=== PATIENT | male | born 2000 | race Caucasian/White ===

== ENCOUNTER 2025-01-28 13:04 | Inpatient (IN) | payer OTHER, SELFPAY ==
--- OUTSIDE RECORDS SUMMARY | 2020-10-27 04:32 | XMS_ITS | Continuity of Care Document ---
Author Organization [employer] [facility] Address [address], [place] [address] Phone Care Team Providers Care Manager Strategy & Account Name Role Phone Elia Jones OD Unavailable Unavailable Advance Directives Directive Yes / No Effective Date File Name No Information Encounters Encounter Description Practice Location Reason(s) For Visit Diagnoses Date Provider Jessica Johnson [facility], [address], [place], [id number], [place] tel:[phone] [facility] 350 No Information 2020 Robert Rodrigez. [address] [place], [place], [id number], [place]. tel:[phone] Family History Family Member Type Diagnosis Age At Onset No Information Payers Payer name Insurance type Covered democrat ID Authoriza tion(s) No Information Social History Type Description Quantity Date Captured Comments Sex Male Smoking Status No Information Chief Complaint And Reason For Visit No Information History Of Present Illness Encounter Date Complaint History Of Prese nt Illness No Information Instructions Date Instruction Additional Infor mation No Information Assessments Type Assessment Date No Information
[2025-01-28 13:10] VITALS: BP 127/79; PULSE 75; RESP 16; TEMP 37.1; O2SAT 98; BMI 35.9
[2025-01-28 13:19] VITALS: BP 127/79; PULSE 75; RESP 16; TEMP 37.1; O2SAT 98
--- NOTE | 2025-01-28 13:41 | ED.C_ITS ---
HPI - Psych 2 General: Chief Complaint: Psychiatric Symptoms Stated Complaint: SI History of Present Illness: 24-year-old man with who presents to the emergency room with suicidal ideation. He has a history of anxiety. Apparently at work he became stressed and had said something to someone about being suicidal. He initially tells me he was suicidal a couple weeks ago and then he says that maybe he is feeling suicidal or having thoughts today but he does not think he would do anything. Related Data Allergies Allergy/AdvReac Type Severity Reaction Status Date / Time Unable to Assess Allergy Unverified 05/26/24 07:02 Review of Systems 2 Narrative: Constitutional symptoms: Negative except as documented in HPI. Skin symptoms: Negative except as documented in HPI. Eye symptoms: Negative except as documented in HPI. ENMT symptoms: Negative except as documented in HPI. Respiratory symptoms: Negative except as documented in HPI. Cardiovascular symptoms: Negative except as documented in HPI. Gastrointestinal symptoms: Negative except as documented in HPI. Genitourinary symptoms: Negative except as documented in HPI. Musculoskeletal symptoms: Negative except as documented in HPI. Neurologic symptoms: Negative except as documented in HPI. Psychiatric symptoms: Negative except as documented in HPI. Endocrine symptoms: Negative except as documented in HPI. Physical Exam 2 Narrative: EXAM NARRATIVE: General: Alert, no acute distress. Skin: Warm, dry. Head: Normocephalic, atraumatic. Neck: Supple, trachea midline. Eye: Extraocular movements are intact. Ears, nose, mouth and throat: mucosa moist. Cardiovascular: Regular, Normal peripheral perfusion. Respiratory: Lungs are clear to auscultation, respirations are non-labored, breath sounds are equal, Symmetrical chest wall expansion. Gastrointestinal: Soft, Nontender, Non distended Musculoskeletal: Normal ROM, no deformity. Neurological: Alert and oriented, No focal neurological deficit observed. Psychiatric: Cooperative, patient does admit to having recent suicidal thoughts Course 2 Vital Signs: Vital signs: Vital Signs Temperature 98.8 F 01/28/25 13:19 Pulse Rate 75 01/28/25 13:19 Respiratory Rate 16 01/28/25 13:19 Blood Pressure 127/79 01/28/25 13:19 Pulse Oximetry 98 01/28/25 13:19 Oxygen Delivery Me thod Room Air 01/28/25 13:19 MDM - Psych Medical Decision Making Medical decision making: Patient's reason for coming to the emergency room: Concern for suicidal thoughts Social determinants: Employed at [employer]. I reviewed the patient's medical record. No previous visits to this facility I reviewed the patient's current home meds Patient tells me he takes anxiety meds Alternate historians: EMS Differential diagnosis: Patient with reported depression and suicidal ideation. concerns for infection, alcohol intoxication, cardiac issues or other medical problems prior to psychiatric admission. Workup: labwork, ekg ordered to evaluate the pathologies and to clear the patient medically prior to psychiatric admission Lab Review: Laboratory results were reviewed and interpreted by myself the emergency room physician. - Medically cleared. - EKG shows no ischemic changes. - Blood alcohol level is negative, -Tylenol and salicylate levels are negative. - Drug screen is negative - No signs of infection, urinalysis clear and white count is not elevated - No anemia. - BUN and creatinine are within normal limits. Assessment of risk: - Level of risk moderate risk patient with being a young male with suicidal ideation - Was hospitalization considered? Yes patient is being admitted Consultation: I spoke with Dr. Morales who is on-call for psychiatry who agrees to admission Assessment and plan: Suicidal thoughts ?96-hour hold placed -Admission to neuropsychiatric unit for continued evaluation and treatment. - All lab work was reviewed and interpreted personally by myself, the ER physician - Evaluation and treatment of this problem were appropriate in the emergency setting Lab Data 01/28/25 13:46 01/28/25 13:46 Laboratory Results WBC 6.63 10^3/uL (3.29-11.43) 01/28/25 13:46 RBC 5.44 10^6/uL (3.85-5.65) 01/28/25 13:46 Hgb 15.30 g/dL (11.27-16.99) 01/28/25 13:46 Hct 45.0 % (37-53) 01/28/25 13:46 MCV 82.7 fl (82-101) 01/28/25 13:46 MCH 28.1 pg (27-33) 01/28/25 13:46 MCHC 34.0 g/dL (30-55) 01/28/25 13:46 RDW 13.1 % (12.1-15.1) 01/28/25 13:46 Plt Count 226 10^3/cmm (157-399) 01/28/25 13:46 MPV 9.1 fL (7.4-10.4) 01/28/25 13:46 Neut % (Auto) 66.3 % 01/28/25 13:46 Lymph % (Auto) 23.8 % 01/28/25 13:46 [place] % (Auto) 6.0 % 01/28/25 13:46 Eos % (Auto) 3.0 % 01/28/25 13:46 Baso % (Auto) 0.6 % 01/28/25 13:46 Neut # (Auto) 4.39 10^3/uL (1.8-7.7) 01/28/25 13:46 Lymph # (Auto) 1.6 10^3/uL (0.8-4.8) 01/28/25 13:46 [place] # (Auto) 0.4 10^3/uL (0.2-0.9) 01/28/25 13:46 Eos # (Auto) 0.2 10^3/uL (0.0-0.8) 01/28/25 13:46 Baso # (Auto) 0.0 10^3/uL (0.0-0.1) 01/28/25 13:46 Nucleated RBC % (auto) 0 % 01/28/25 13:46 Nucleated RBCs # 0.0 /100WBC 01/28/25 13:46 Sodium 141 mmol/L (136-145) 01/28/25 13:46 Potassium 3.9 mmol/L (3.5-5.1) 01/28/25 13:46 Chloride 102 mmol/L (98-107) 01/28/25 13:46 Carbon Dioxide 28 mmol/L (22-29) 01/28/25 13:46 Anion Gap 14.9 (5-19) 01/28/25 13:46 BUN 12 mg/dL (6-20) 01/28/25 13:46 Creatinine 0.7 mg/dL (0.7-1.2) 01/28/25 13:46 GFR Calculation 139.8 mL/min (90-130) H 01/28/25 13:46 Glucose 88 mg/dL (65-115) 01/28/25 13:46 Calculated Osmolality 291 mOsm/kg (285-295) 01/28/25 13:46 Calcium 9.4 mg/dL (8.5-10.5) 01/28/25 13:46 Total Bilirubin 0.5 mg/dL (0.15-1.2) 01/28/25 13:46 AST 19 U/L (0-40) 01/28/25 13:46 ALT 26 U/L (0-41) 01/28/25 13:46 Alkaline Phosphatase 68 U/L (40-130) 01/28/25 13:46 Total Protein 7.3 g/dL (6.6-8.7) 01/28/25 13:46 Albumin 4.9 g/dL (3.5-5.2) 01/28/25 13:46 Globulin 2.4 g/dL (1.3-4.6) 01/28/25 13:46 TSH 4.26 uIU/mL (0.27-4.20) H 01/28/25 13:46 Urine Color Yellow (Yellow) 01/28/25 13:23 Urine Appearance Clear (CLEAR) 01/28/25 13:23 Urine pH 6.0 (5-7) 01/28/25 13:23 Ur Specific [employer] [facility] 1.022 (1.005-1.030) 01/28/25 13:23 Urine Protein Negative (Negative) 01/28/25 13:23 Urine Glucose (UA) Negative (Normal) 01/28/25 13:23 Urine Ketones Negative (Negative) 01/28/25 13:23 Urine Blood Negative (Negative) 01/28/25 13:23 Urine Nitrate Negative (Negative) 01/28/25 13:23 Urine Bilirubin Negative (Negative) 01/28/25 13:23 Urine Urobilinogen 1.0 mg/dL (Negative) 01/28/25 13:23 Ur Leukocyte Esterase Negative (Negative) 01/28/25 13:23 Urine RBC 0-2 /hpf (0-2) 01/28/25 13:23 Urine WBC 0-5 /hpf (0-5) 01/28/25 13:23 Ur Squamous Epith Cells 0-5 /hpf (0-5) 01/28/25 13:23 Amorphous Sediment Not Reportable 01/28/25 13:23 Urine Bacteria None seen /hpf (NONE) 01/28/25 13:23 Hyaline Casts 0-4 /lpf H 01/28/25 13:23 Salicylates < 0.3 mg/dL (3-10) L 01/28/25 13:46 Urine Opiates Screen Negative ng/mL (Negative) 01/28/25 13:23 Acetaminophen < 5.0 ug/mL (10-30) L 01/28/25 13:46 Ur Barbiturates Screen Negative ng/mL (Negative) 01/28/25 13:23 Ur Phencyclidine Scrn Negative ng/mL (Negative) 01/28/25 13:23 Ur Amphetamines Screen Negative ng/mL (Negative) 01/28/25 13:23 U Benzodiazepines Scrn Negative ng/mL (Negative) 01/28/25 13:23 Urine Cocaine Screen Negative ng/mL (Negative) 01/28/25 13:23 U Marijuana (THC) Screen Negative ng/mL (Negative) 01/28/25 13:23 Ethyl Alcohol < 10 mg/dL (0-10) 01/28/25 13:46 No radiology studies performed this visit Discharge Plan Discharge Patient Disposition: Admitted As Inpatient Clinical Impression: Suicidal ideation, Depression Condition: Stable Coding Level of Care Code ED Ring Spinner for Marifer Chamorro
[2025-01-28 13:48] LABS: Glucose Urine UA Negative (Normal); Nitrate Urine Negative (Negative); Specific Gravity, Urine 1.022 (1.005-1.030)
[2025-01-28 13:53] LABS: Add Urine Microscopic? YES
[2025-01-28 13:54] LABS: PCP Screen Urine Negative (Negative)
[2025-01-28 14:01] LABS: Hematocrit 45.0 % (37-53); Hemoglobin 15.30 g/dL (11.27-16.99); Mean Corpuscular HGB Conc 34.0 g/dL (30-55); Mean Corpuscular Hemoglobin 28.1 pg (27-33); Mean Corpuscular Volume 82.7 fl (82-101); Nucleated Red Blood Cells % 0 %; Platelet Count 226 10^3/cmm (157-399); Red Blood Count 5.44 10^6/uL (3.85-5.65); White Blood Count 6.63 10^3/uL (3.29-11.43)
[2025-01-28 14:49] LABS: Alanine Aminotransferase 26 U/L (0-41); Albumin Level 4.9 g/dL (3.5-5.2); Alkaline Phosphatase 68 U/L (40-130); Anion Gap 14.9 (5-19); Aspartate Amino Transferase 19 U/L (0-40); Blood Urea Nitrogen 12 mg/dL (6-20); Calcium 9.4 mg/dL (8.5-10.5); Carbon Dioxide 28 mmol/L (22-29); Chloride 102 mmol/L (98-107); Globulin 2.4 g/dL (1.3-4.6); Glucose 88 mg/dL (65-115); Osmolality Calculated 291 mOsm/kg (285-295); Potassium 3.9 mmol/L (3.5-5.1); Sodium 141 mmol/L (136-145); Thyroid Stimulating Hormone 4.26 uIU/mL (0.27-4.20); Total Protein 7.3 g/dL (6.6-8.7)
[2025-01-28 14:50] LABS: Acetaminophen < 5.0 ug/mL (10-30); Alcohol Level < 10 mg/dL (0-10); Salicylate < 0.3 mg/dL (3-10)
--- NOTE | 2025-01-28 14:54 | ECG_ITS ---
[employer] Test Date: 2025-01-28 Pat Name: Delbert Quiñones Department: Room: Gender: Male Crayon Sawyer: : 2000 Requested By: Alona Barrios Order Number: [id number] Sampson MD: Brett Trivedi M.D. Measurements Intervals Coulters Rate: 62 P: 33 VA: 152 QRS: 10 QRSD: 113 T: 30 QT: 395 QTc: 403 Interpretive Statements SINUS RHYTHM MODERATE INTRAVENTRICULAR CONDUCTION DELAY [110+ ms QRS DURATION] MODERATE VOLTAGE CRITERIA FOR LVH, CONSIDER NORMAL VARIANT [MEETS CRITERIA IN ONE OF: R(aVL), S(V1), R(V5), R(V5/V6)+S(V1)] No previous ECG available for comparison Electronically Signed On 01-28-2025 23:53:27 SENIOR PRODUCT MANAGER by rBett Trivedi M.D. [id number]
--- NOTE | 2025-01-28 15:06 | PC.NURSE ---
Involuntary 96 hour hold rights read and reviewed with patient. Patient verbalized understandings and copy of rights given to patient.
[2025-01-28 16:47] VITALS: BP 138/75; PULSE 67; O2SAT 98
[2025-01-28 17:57] VITALS: BP 152/89; PULSE 72; RESP 18; TEMP 37.2; O2SAT 99
[2025-01-28 20:03] VITALS: BP 143/77; PULSE 62; RESP 18; TEMP 37.1; O2SAT 98
[2025-01-29 06:00] VITALS: BP 148/92; PULSE 74; RESP 18; TEMP 37; O2SAT 99
[2025-01-29 13:24] VITALS: BP 174/84; PULSE 84; RESP 16; TEMP 37.2; O2SAT 98
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
[2025-01-29 20:03] VITALS: BP 145/93; PULSE 69; RESP 18; TEMP 36.9; O2SAT 97
[2025-01-30 06:00] VITALS: BP 131/64; PULSE 75; RESP 18; TEMP 36.9; O2SAT 98
[2025-01-30 12:49] VITALS: BP 153/94; PULSE 92; RESP 17; TEMP 37.1; O2SAT 98
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
[2025-01-30 17:06] VITALS: BP 153/94; PULSE 92; RESP 17; TEMP 37.1; O2SAT 98
== END 2025-01-30 17:22 | disposition home or self-care (01) | DRG 885 ==
LOC: ER 15:08 → NP 16:48
PROVIDERS: Admitting Provider Psychiatry & Neurology Psychiatry; Emergency Provider Emergency Medicine; PCP Family Medicine; Visit Provider Psychiatry & Neurology Psychiatry
DX: F33.9 Major depressive disorder, recurrent, unspecified (principal); R45.851 Suicidal ideations; F41.1 Generalized anxiety disorder; F43.10 Post-traumatic stress disorder, unspecified; Z81.1 Family history of alcohol abuse and dependence
CPT/HCPCS: 36415; 80053; 80306; 80307; 81001; 84443; 85025; 93005; 97150; 97165; 99285; J9999